=== PATIENT | male | born 1955 | race Caucasian/White ===

== ENCOUNTER → 2020-04-22 13:43 | Outpatient (CLI) | payer MEDICARE, SELFPAY ==
--- NOTE | ~2020-04-22 | XR_ITS ---
EXAMINATION: XR knee LT 2V DATE: 04/22/2020 14:03 INDICATION: Left knee pain TECHNIQUE: Two views of the left knee were obtained. COMPARISON: 06/07/2017 FINDINGS: Alignment is normal. No fracture or osteochondral lesion. There is tricompartmental osteoar thritis of the, moderate in the medial compartment. There is calcification of the menisci. No joint e ffusion/synovitis. Soft tissues are unremarkable. IMPRESSION: 1. Osteoarthritis and chondrocalcinosis of the menisci without acute osseous abnormality. Reviewed, dictated and finalized at location A. LE CLERK IMPRESSION: 1. Osteoarthritis and chondrocalcinosis of the menisci without acute osseous ab normality.
--- NOTE | ~2020-04-22 | XR_ITS ---
EXAMINATION: XR knee RT 2V DATE: 04/22/2020 14:03 INDICATION: Right knee pain. TECHNIQUE: 2 views of right knee were obtained. COMPARISON: Right knee radiographs 06/07/17 FINDINGS: There is varus angulation at the knee. No fracture. There is moderate osteoarthritis of med ial compartment and mild osteoarthritis of lateral and patellofemoral compartments. There is a small knee joint effusion. IMPRESSION: 1. Moderate right knee osteoarthritis. 2. Small right knee joint effusion. Reviewed, dictated and finalized at location A. RMATION ARCHITECT
== END ==
PROVIDERS: Visit Provider Nurse Practitioner Family
DX: M17.0 Bilateral primary osteoarthritis of knee (principal); M25.461 Effusion, right knee
CPT/HCPCS: 73560

== ENCOUNTER 2020-12-15 14:20 | Outpatient (CLI) | payer MEDICARE, SELFPAY ==
[2020-12-15 15:25] LABS: SARS-CoV-2 RNA PCR Negative (Negative)
== END 2020-12-15 14:21 | disposition home or self-care (01) ==
PROVIDERS: PCP Physician Assistant; Visit Provider Physician Assistant
DX: Z20.822 Contact with and (suspected) exposure to COVID-19 (principal)
CPT/HCPCS: C9803; U0003; U0005

== ENCOUNTER 2023-09-06 14:44 | Outpatient (CLI) | payer MEDICARE, SELFPAY ==
--- NOTE | ~2023-09-06 | XR_ITS ---
EXAMINATION: XR chest 2V 09/06/2023 15:07 INDICATION: Shortness of breath PROCEDURE: 2 view chest COMPARISON: No prior studies for comparison. FINDINGS: The lungs are clear. The cardiomediastinal silhouette is within normal limits. There are no pleural effusions. There is no pneumothorax suspected. IMPRESSION: 1: NO ACUTE CARDIOPULMONARY DISEASE. Reviewed, dictated and finalized at location B.
--- NOTE | 2023-09-06 14:55 | ECG_ITS ---
Test Date: 2023-09-06 15:33:17 Measurements Intervals [place] Rate: 60 P: 86 HI: 134 QRS: 79 QRSD: 90 T: 90 QT: 413 QTc: 415 Interpretive Statements SINUS RHYTHM BORDERLINE ST-T WAVE ABNORMALITY- ANT/HIGH LAT LEADS BORDERLINE ECG No previous ECG available for comparison Electronically Signed On 09-06-2023 15:59:00 CDT by Carlos Koenig D.O.
== END 2023-09-06 14:45 | disposition home or self-care (01) ==
LOC: CHSIMG 14:46
PROVIDERS: PCP Physician Assistant; Visit Provider Physician Assistant
DX: R06.02 Shortness of breath (principal)
CPT/HCPCS: 71046; 93005

== ENCOUNTER 2023-10-24 13:00 | Outpatient (CLI) | payer MEDICARE, SELFPAY ==
--- NOTE | ~2023-10-24 | US_ITS ---
COMPLETE ABDOMINAL ULTRASOUND Ordering provider: Michele Hall, DEYSI History: . OTHER ASCITES . Comparison: None. FINDINGS: LIVER: Normal size and echotexture. The liver measures 12 CNM. Lobulated hypoechoic area is seen terrence uring 2.2 x 1.8 x 1.7 cm. No focal hepatic lesions or perihepatic fluid collections are identified. P ortal vein flow is normal. GALLBLADDER: Unremarkable. No evidence for stones, sludge, gallbladder wall thickening or pericholecy stic fluid collections. A negative sonographic Shoemaker's sign was noted. BILIARY DUCTS: No evidence for intra or extrahepatic biliary dilation. Common bile duct measures 3.3 mm in diameter which is within normal limits. PANCREAS: Not demonstrated. Right kidney measures 4.8 x 9.7 x 7 cm. FREE FLUID: Minimal ascites. IMPRESSION: Hypoechoic area seen in the liver which is most likely a mass or a cyst. Further evaluation advised. Minimal ascites. Reviewed, dictated and finalized at location A. IMPRESSION: Hypoechoic area seen in the liver which is most likely a mass or a cyst. Furthe r evaluation advised. Minimal ascites.
== END 2023-10-24 13:01 | disposition home or self-care (01) ==
LOC: CHSIMG 13:03
PROVIDERS: PCP Physician Assistant; Visit Provider Physician Assistant
DX: R18.8 Other ascites (principal); R93.5 Abnormal findings on diagnostic imaging of other abdominal regions, including retroperitoneum
CPT/HCPCS: 76705

== ENCOUNTER 2023-12-30 12:29 | Outpatient (CLI) | payer MEDICARE, SELFPAY ==
[2023-12-30 12:53] LABS: Basophils Absolute Auto 0.06 K/mm3 (0.00-0.10); Hematocrit 42.6 % (37.0-46.0); Hemoglobin 14.4 g/dL (12.4-15.3); Immature Granulocyte Absolute 0.02 K/mm3 (0.00-0.00); Immature Granulocyte Percent A 0.3 % (0.0-0.0); Immature Platelet Fraction Pct 2.6 % (1.0-7.0); Lymphocytes Absolute Auto 1.01 K/mm3 (1.10-4.50); Lymphocytes Percent Auto 16.8 % (18.0-42.0); Mean Corpuscular HGB Conc 33.8 g/dL (32-36); Mean Corpuscular Hemoglobin 31.3 pg (27.0-31.0); Mean Corpuscular Volume 92.6 fL (78.0-102.0); Monocytes Absolute Auto 0.49 K/mm3 (0.10-0.90); Monocytes Percent Auto 8.2 % (2.0-11.0); Neutrophils Absolute Auto 4.12 K/mm3 (1.70-7.20); Neutrophils Percent Auto 68.7 % (50.0-70.0); Platelet Count Result 119 K/mm3 (150-420); Red Cell Distribution Width 13.4 % (11.6-14.4)
[2023-12-30 13:06] LABS: Prothrombin Time 11.1 Seconds (9.50-12.1)
[2023-12-30 13:31] LABS: Alanine Aminotransferase 63 U/L (16-63); Albumin Level 3.5 g/dL (3.4-5.0); Alkaline Phosphatase 151 U/L (46-116); Anion Gap 8 mmol/L (4-12); Aspartate Amino Transferase 42 U/L (15-37); Bilirubin,Total 2.3 mg/dL (0.00-1.00); Blood Urea Nitrogen 13 mg/dL (7-18); Calcium 8.9 mg/dL (8.5-10.1); Carbon Dioxide 29 mmol/L (21-32); Chloride 101 mmol/L (98-108); Estimated Glomerular Filt Rate > 60; Glucose 102 mg/dL (70-99); Osmolality Calculated 286 mOsm/kg (285-295); Potassium 4.5 mmol/L (3.5-5.1); Sodium 138 mmol/L (136-145); Total Protein 6.9 g/dL (6.4-8.2)
== END 2023-12-30 12:30 | disposition home or self-care (01) ==
LOC: CHSLAB 12:32
PROVIDERS: PCP Physician Assistant
DX: R79.89 Other specified abnormal findings of blood chemistry (principal); K74.60 Unspecified cirrhosis of liver; R18.8 Other ascites
CPT/HCPCS: 36415; 80053; 85025; 85055; 85610